=== PATIENT | female | born 1990 | race Caucasian/White ===

== ENCOUNTER 2019-04-30 00:09 | Inpatient (IN) | payer MEDICAID ==
[~2019-04-30] VITALS: Ht 152.4 cm; Wt 61.7 kg
[~2019-04-30 00:09] MED LIST: AMLODIPIN PO; CLONIDINE PO; DOCU-276 PO; LISINOPRIL PO; METOPROLOL PO; RENAGEL PO
[2019-04-30] MEDS ORDERED: ONDANSETRON HCL 4MG/2ML INJ IV STA (01:09)
[2019-04-30] MEDS ORDERED: SODIUM CHLORIDE 0.9% 1,000 ML IV ONE ×2 (01:09→06:45)
[2019-04-30] MEDS ORDERED: LEVETIRACETAM 500MG PREMIX 100 ML IV ONE (01:15)
[2019-04-30 01:44] LABS: CHLORIDE 113 mEq/L (98-107)
[2019-04-30 01:45] LABS: BASOPHILS % 0.5 % (0.0-2.0); EOSINOPHILS % 0.7 % (0.0-5.0); HEMATOCRIT. 42.8 % (36.0-48.0); HEMOGLOBIN. 14.7 g/dL (12.0-16.0); LYMPHOCYTES % 16.1 % (20.0-50.0); MEAN CORPUSCULAR HEMOGLOBIN 32.9 pg (28.0-32.0); MEAN CORPUSCULAR VOLUME 96.1 fL (81.0-99.0); MEAN PLATELET VOLUME 8.9 fl (7.4-10.4); NEUTROPHILS % 72.7 % (40.0-76.0); PLATELET 171 x1000/uL (130-400); RED BLOOD CELL COUNT 4.46 mill/uL (4.2-5.4)
[2019-04-30] MEDS ORDERED: PHENYTOIN SODIUM EXTENDED 100MG CAPSULE PO ONE (01:45)
[2019-04-30] MEDS ORDERED: HYDROCODONE/ACETAMINOPHEN 5/325MG TABLET PO ONE (03:00)
[2019-04-30] MEDS ORDERED: LORAZEPAM 2MG/ML CPJ IV ONE (04:15)
[2019-04-30] MEDS ORDERED: PREDNISONE 5MG TABLET PO SCH (09:00)
[2019-04-30 09:39] VITALS: BP 125/84
[2019-04-30] MEDS ORDERED: DOCUSATE SODIUM 100MG CAPSULE PO PRN (10:00)
[2019-04-30] MEDS ORDERED: CLONIDINE 0.1MG TABLET PO PRN (10:00)
[2019-04-30] MEDS ORDERED: HYDROCODONE/ACETAMINOPHEN 5/325MG TABLET PO PRN (10:00)
[2019-04-30] MEDS ORDERED: ACETAMINOPHEN 325MG TABLET PO PRN (10:00)
[2019-04-30] MEDS ORDERED: IPRATROPIUM/ALBUTEROL 0.5-3(2.5)MG/3ML NEB INH PRN (10:00)
[2019-04-30] MEDS ORDERED: LORAZEPAM 0.5MG TABLET PO PRN (10:00)
[2019-04-30] MEDS ORDERED: LORAZEPAM 2MG/ML CPJ IV PRN (11:30)
[2019-04-30] MEDS ORDERED: LACO100T2 MT (11:41)
[2019-04-30] MEDS ORDERED: PROG1 MT (11:46)
[2019-04-30] MEDS ORDERED: ACYC400T5 MT (11:46)
[2019-04-30] MEDS ORDERED: AZAT50TA24 MT (11:46)
[2019-04-30] MEDS ORDERED: PRED5TAB MT (11:46)
[2019-04-30 12:00] VITALS: BP 107/71
[2019-04-30] MEDS ORDERED: AMLODIPINE 10MG TABLET PO SCH (12:30)
[2019-04-30] MEDS ORDERED: AZATHIOPRINE 50MG TABLET PO SCH (12:30)
[2019-04-30] MEDS ORDERED: NON FORMULARY PATIENT HOME MED XX SCH (12:30)
[2019-04-30] MEDS ORDERED: LISINOPRIL 20MG TABLET PO SCH (12:30)
[2019-04-30 13:12] LABS: *AMPHETAMINES SCREEN URINE NEGATIVE (NEGATIVE); *BARBITURATES SCREEN URINE NEGATIVE (NEGATIVE); *BENZODIAZEPINES SCREEN URINE NEGATIVE (NEGATIVE); *COCAINE SCREEN URINE NEGATIVE (NEGATIVE)
[2019-04-30 13:14] LABS: CANNABINOID URINE SCREEN NEGATIVE (NEGATIVE); METHADONE URINE SCREEN NEGATIVE (NEGATIVE); OPIATES URINE SCREEN NEGATIVE (NEGATIVE); PHENCYCLIDINE URINE SCREEN NEGATIVE (NEGATIVE)
[2019-04-30] MEDS: VIMPAT 100 MG PO SCH ×2 (13:17→16:39)
[2019-04-30] MEDS: TACROLIMUS 1MG CAPSULE PO SCH ×2 (13:58→16:39)
[2019-04-30] MEDS ORDERED: CLONIDINE 0.2MG TABLET PO SCH (14:00)
[2019-04-30 16:00] VITALS: BP 118/66
[2019-04-30] MEDS ORDERED: DOCUSATE SODIUM 100MG CAPSULE PO SCH (17:00)
[2019-04-30 20:00] VITALS: BP 119/82
[2019-04-30] MEDS ORDERED: ACYCLOVIR 400 MG TABLET PO SCH (20:00)
[2019-04-30] MEDS ORDERED: METOPROLOL TARTRATE 50MG TABLET PO SCH (21:00)
[2019-04-30 22:19] VITALS: BP 119/82
== END 2019-04-30 23:00 | disposition home or self-care (01) | DRG 53 ==
LOC: ER 00:09 → 8WST 05:35 → EDBEDREQ 05:39 → EDBEDREQTM 05:39 → ENRESERV 07:02
PROVIDERS: ADMIT Internal Medicine; ATTEND Internal Medicine
DX: G40.409 Other generalized epilepsy and epileptic syndromes, not intractable, without status epilepticus (principal); Z94.0 Kidney transplant status; Z88.9 Allergy status to unspecified drugs, medicaments and biological substances; R26.9 Unspecified abnormalities of gait and mobility
CPT/HCPCS: 36415; 70551; 80305; 80320; 93005; 99285; J2060; J2405; J7030; J7500; J7507; J7512; G0480